=== PATIENT | female | born 1955 | race Caucasian/White ===

== ENCOUNTER → 2017-08-07 | Outpatient (CLI) | payer OTHER ==
[2017-08-07 15:08] LABS: BASOPHILS # (AUTO) 0.03 x10^3/uL (0-0.1); BASOPHILS % (AUTO) 1 % (0-1); EOSINOPHILS # (AUTO) 0.09 x10^3/uL (0-0.4); EOSINOPHILS % (AUTO) 1 % (1-7); LYMPHOCYTES # (AUTO) 1.22 x10^3/uL (1-3.4); LYMPHOCYTES % (AUTO) 19 % (22-44); MD NO; MEAN CORPUSCULAR HEMOGLOBIN 30.4 pg (27.0-34.8); MEAN CORPUSCULAR HGB CONC 33.8 g/dL (32.4-35.8); MEAN CORPUSCULAR VOLUME 89.9 fL (80-100); MEAN PLATELET VOLUME 8.9 fL (7.4-10.4); MONOCYTES # (AUTO) 0.51 x10^3/uL (0.2-0.8); MONOCYTES % (AUTO) 8 % (2-9); NEUTROPHILS # (AUTO) 4.71 x10^3/uL (1.8-6.8); NEUTROPHILS % (AUTO) 72 % (42-75); PLATELET COUNT 214 x10^3/uL (130-400); RED BLOOD COUNT 4.68 x10^6/uL (3.82-5.3); RED CELL DISTRIBUTION WIDTH 13.7 % (9.6-15.2)
[2017-08-07 15:10] LABS: MICROSCOPIC NOT IND
[2017-08-07 15:18] LABS: ALBUMIN 3.3 g/dL (3.4-5.0); ANION GAP 4 mmol/L (5-15); CALCIUM 9.3 mg/dL (8.5-10.1); CHLORIDE 108 mmol/L (98-107)
[2017-08-07 15:20] LABS: INTERNATIONAL NORMALIZED RATIO 0.93 (0.93-1.1); PROTHROMBIN TIME 9.6 Seconds (9.6-11.5)
[2017-08-07 15:21] LABS: ALANINE AMINOTRANSFERASE 25 U/L (12-78); ALKALINE PHOSPHATASE 109 U/L (45-117); BILIRUBIN,TOTAL 0.6 mg/dL (0.2-1.0); CREATININE 1.39 mg/dL (0.55-1.02); TOTAL PROTEIN 7.3 g/dL (6.4-8.2)
== END | disposition home or self-care (01) ==
LOC: STAR 14:03
PROVIDERS: ATTEND Urology
DX: Z01.818 Encounter for other preprocedural examination (principal); I45.10 Unspecified right bundle-branch block; N20.0 Calculus of kidney
CPT/HCPCS: 36415; 80053; 81003; 85025; 85610; 85730; 87086; 93005

== ENCOUNTER 2017-08-15 07:49 | Day surgery (SDC) | payer OTHER ==
[~2017-08-15] VITALS: Ht 168.9 cm; Wt 97.4 kg
[~2017-08-15 07:49] MED LIST: CHOL2000 PO; DILT60TA30 PO; FLUO10TA PO; GABA300C10 PO; INSU100I34 SC; LOSA1TAB25 PO; LOVA40TA2 PO; METF500T4 PO; METF850T2 PO; METO25TA35 PO; NIAC250T2 PO; TRAM50TA2 PO; VITA1CAP PO
[2017-08-15 08:39] VITALS: BP 144/77
[2017-08-15] MEDS ORDERED: FENTANYL PF 250 MCG/5ML ONE (09:14)
[2017-08-15] MEDS ORDERED: MIDAZOLAM 1 MG/ML, 2ML ONE (09:14)
[2017-08-15] MEDS ORDERED: PROPOFOL 10 MG/ML, 20ML ONE (09:22)
[2017-08-15] MEDS ORDERED: LIDOCAINE-MPF 2% ,5ML ONE (09:22)
[2017-08-15] MEDS ORDERED: WATER-INJECTION,STERILE 10 ML IV ONE (09:23)
[2017-08-15] MEDS ORDERED: CEFAZOLIN 1,000 MG ONE ×2 (09:23)
[2017-08-15] MEDS ORDERED: DEXAMETHASONE 4 MG/ML, 1ML ONE ×2 (09:24)
[2017-08-15] MEDS ORDERED: ONDANSETRON ODT 8 MG ONE (09:36)
[2017-08-15] MEDS ORDERED: GABAPENTIN 300 MG CAPSULE ONE (09:37)
[2017-08-15] MEDS ORDERED: CIPROFLOXACIN/PMX 400MG/200ML 0 ML ONE (09:50)
[2017-08-15] MEDS ORDERED: CIPROFLOXACIN/PMX 400MG/200ML 200 ML ONE (09:51)
[2017-08-15] MEDS ORDERED: ROCURONIUM 10MG/ML,5ML ONE (09:53)
[2017-08-15] MEDS ORDERED: LACTATED RINGERS 1,000 ML IV SCH (10:00)
[2017-08-15] MEDS ORDERED: MEPERIDINE/PF 25MG/0.5ML IVPush PRN (10:30)
[2017-08-15] MEDS ORDERED: ALBUTEROL SULFATE 2.5 MG/3 ML NPPB PRN (10:30)
[2017-08-15] MEDS ORDERED: hydrALAzine 20 MG/ML, 1ML IV PRN (10:30)
[2017-08-15] MEDS ORDERED: HALOPERIDOL 5 MG/ML IV PRN (10:30)
[2017-08-15] MEDS ORDERED: FENTANYL PF 100 MCG/2ML IV PRN (10:30)
[2017-08-15] MEDS ORDERED: ACETAMINOPHEN 325 MG TABLET PO PRN (10:30)
[2017-08-15] MEDS ORDERED: LABETALOL 5MG/ML, 20ML IV PRN (10:30)
[2017-08-15] MEDS ORDERED: OXYcodone 5 MG/5 ML ORAL.SOL UDC PO PRN (10:30)
[2017-08-15] MEDS ORDERED: PROMETHAZINE 25 MG/ML, 1ML IV PRN (10:30)
[2017-08-15] MEDS ORDERED: HYDROmorphone 1 MG/ML, 1ML IV PRN (10:30)
[2017-08-15] MEDS ORDERED: GLYCOPYRROLATE 0.4 MG/2 ML, 2ML ONE (11:17)
[2017-08-15] MEDS ORDERED: NEOSTIGMINE 1 MG/ML, 10ML ONE (11:17)
[2017-08-15] MEDS ORDERED: PROMETHAZINE 25 MG/ML, 1ML ONE (11:33)
[2017-08-15] MEDS ORDERED: OXYcodone 5 MG/5 ML ORAL.SOL UDC ONE (11:41)
[2017-08-15] MEDS ORDERED: ACETAMINOPHEN 650 MG/20.3 ML UDC ONE (11:41)
[2017-08-15] MEDS ORDERED: FENTANYL PF 100 MCG/2ML ONE (11:42)
[2017-08-15] MEDS ORDERED: HALOPERIDOL 5 MG/ML ONE (11:57)
[2017-08-15] MEDS ORDERED: ONDANSETRON 2MG/ML, 2ML ONE (12:09)
[2017-08-15] MEDS ORDERED: ONDANSETRON 2MG/ML, 2ML IVPush ONE (12:30)
== END 2017-08-15 15:20 ==
LOC: OUT 07:49
PROVIDERS: ATTEND Urology
DX: N20.0 Calculus of kidney (principal); E11.9 Type 2 diabetes mellitus without complications; I10 Essential (primary) hypertension; E78.00 Pure hypercholesterolemia, unspecified; Z88.6 Allergy status to analgesic agent; Z98.51 Tubal ligation status; Z90.49 Acquired absence of other specified parts of digestive tract
CPT/HCPCS: 52356; 74018; 76001; 82360; 82962; 88300; C1758; C2617; J0744; J1100; J1630; J2250; J2405; J2704; J2710; J3010; J3490; J7120; J0690; Q0162